=== PATIENT | male | born 1945 | race Caucasian/White ===

== ENCOUNTER 2019-01-15 05:25 | Inpatient (IN) | payer OTHER, MEDICARE, SELFPAY ==
[2019-01-01 10:59] VITALS: BMI 21.4
[2019-01-15] VITALS (15 sets, daily range): BP systolic 114–170; BP diastolic 67–103; PULSE 56–700; RESP 9–18; TEMP 35.6–36.8; O2SAT 97–100; BMI 20.7
[2019-01-15] MEDS: LACTATED RINGERS 1,000 ML 42 ML IV (07:27)
[2019-01-15] MEDS: CEFAZOLIN 2 GM/100 ML FROZ.PIGGY IV (08:16)
--- NOTE | 2019-01-15 08:36 | SUR.OPER ---
Prone on spine table, head in foam head support, padded chest and pelvic supports, gel pad at knees, lower legs supported by pillows; nipples, genitalia and toes free of pressure, arms secured on foam padded arm boards at <90 degrees abduction. Tape over blanket at thigh secured to table.
--- NOTE | 2019-01-15 08:41 | SUR.OPER ---
BRUISE COVERING LEFT SIDE OF FOREHEAD. PATIENT STATES HE HIT IT ON A CAR DOOR LAST WEEK. RUIZ PALCEMENT ATTEMPTED. UNABLE TO ADVANCE TO VERIFY URINE RETURN.DR. SHETTY INFORMED AND RUIZ PLACEMENT ORDER DC'D
[2019-01-15] MEDS: BUPIVACAINE 0.25% W/ EPI 30 ML VIAL INJ (08:53)
[2019-01-15] MEDS: BUPIVACAINE LIPOSOME 266 MG/20 ML VIAL INJ (08:56)
--- NOTE | 2019-01-15 09:27 | PM.OP.1 ---
Operative Date/Time/Diagnoses Date of procedure: 01/15/19 Time of procedure: 08:04 Pre-op diagnosis: 1. Hx of lumbar fusion with possible hardware loosening 2. Lumbar spinal stenosis at multiple levels Post-op diagnosis: same Procedure & Clinicians Procedure: 1. Posterior segmental instrumentation removal L3-5 2. L5-S1 posterolateral fusion 3. L3-4, L4-5 hemilaminectomy with debridement of epidural scar tissue Same procedure as scheduled: Yes Indications: Patient has been having chronic back pain and worsening lumbar radiculopathy. Patient had multiple lumbar surgeries in the past with worsening back pain and leg pain. Patient has left leg atrophy and significant radiculopathy after his previous surgery. Patient failed multiple conservative management with worsening pain weakness and numbness in her lower extremity. Patient has been having difficulty performing activity of daily living. After discussing risks benefits of treatment options, patient elected proceed with surgery. Surgeon: Gatito Padilla Museum Curator: Lolis Goldberg Click Yes if Unassisted: No Anesthesia Type: General Operative Notes Closure Type: primary Specimen(s): none sent Estimated Blood Loss (mL): 20 Blood products transfused: none Procedure in detail: Patient was seen in the preoperative area. Risks and benefits of the surgery was discussed with the patient. Informed consent was obtained from the patient and placed in the chart. Surgical site was marked. Patient was taken to the operative room. General anesthesia was administered. Prophylactic antibiotic was given to the patient less than 30 min before the incision was made. Patient was placed into a prone position on the Grupo table. Patient's back was then prepped and draped in the sterile fashion. Time-out was performed at this time. Using patient's previous scar incision was made over the L2-S1 interval on the left side. Fascia was incised in line with skin incision. Patient's previously placed hardware over the L3-L5 level was identified by dissecting down to the level the hardware using a Bovie and a Cisneros. The locking caps which was removed using [employer] screwdriver. The locking marlys was then removed from the tulips of the pedicle screws using a Kirk. Metal cutting bur was used to cut the marlys cephalad to the L3 pedicle screw on the left side. Once the marlys was cut and was removed from the tulips of the 2 pedicle screws from L3 and L5. The pedicle screws were then removed using the screwdriver. The screws were found to have good purchase. After the marlys and pedicle screws removed I was identified patient has significant amount of epidural scarring, this was carefully debrided using Kerrison rongeur and pituitary and curettes at L3-4 L4-5 interval. There is also evidence of previous dural injury which we protected using DuraGen over the area of potential previous defect. There was no CSF leakage during the process of reinforcing previous dural injury. The thecal sac was both directly and indirectly decompressed with removal of the hardware and also the hemilaminectomy at L3-4 L4-5 level as well as the posterolateral gutter at both levels on the left side. There was significant amount of posterolateral fusion mass from L2-L5. There was no visible fusion mass L5-S1. The posterolateral gutter at L5-S1 was decorticated using osteotome to expose bleeding bone in order to accomplish posterolateral fusion. This was done by placing DBM into the posterolateral gutter at L5-S1 level after decortication was completed. The wound was irrigated copiously with sterile normal saline. After confirming with AP and lateral C-arm imaging final hardware status, the wound was then irrigated with sterile normal saline and packed with Ray-Elie gauze for 3 min to accomplish hemostasis. After the gauze was removed the deep fascia was closed with #1 Vicryl suture. The subcutaneous layer was closed with 2-0 Vicryl. The skin was closed with skin cory. Patient tolerated the procedure well. There were no complications. Complications: none Post-operative Condition: stable Disposition: PACU Plan for aftercare: Admit to inpatient hospital
[2019-01-15] MEDS: fentaNYL 100 MCG/2 ML INJ 50 MCG IV (09:58)
[2019-01-15] MEDS: HYDROMORPHONE 2 MG INJ 0.5 MG IV (09:59)
[2019-01-15] MEDS: METOCLOPRAMIDE 10 MG/2 ML INJ IV (10:11)
[2019-01-15] MEDS: LORazepam 2 MG/ML INJ 0.25 MG IV (10:13)
--- NOTE | 2019-01-15 10:46 | SUR.PHASEI ---
Patient arrived from OR via stretcher. Medicated for c/o 8/10 pain and c/o nausea. Patient current states pain is 3/10. Placed patient on 3L 02 via MN. Kira GONZALEZ. VALENTÍN's x 4. Pulse regular, SR.
[2019-01-15] MEDS: SODIUM CHLORIDE 0.9% 1,000 ML 100 ML IV ×2 (13:00→22:20)
[2019-01-15] MEDS: ACETAMINOPHEN 325 MG TABLET 650 MG PO ×2 (14:04→19:32)
--- NOTE | 2019-01-15 15:02 | PC.NURSE ---
Pt was brought to the floor from PACU at approx. 1115. He was sleepy but A & Ox3. He reports minimal pain of 3-4/10 which is tolerable for him. Dressing to back is CDI. CMS+ PPP+ Pt has been up with nursing and ambulated to the bathroom with FWW and voided urine independently. He is 1 person SBA.
--- NOTE | 2019-01-15 15:17 | PT.IIE ---
Current Diagnoses Spinal stenosis, lumbar region without neurogenic claudication (01/15/19) Muscle wasting and atrophy, not elsewhere classified, unspecified thigh (01/15/19) Postlaminectomy syndrome, not elsewhere classified (01/15/19) Surgery Performed Operation Date: 01/15/19 07:45 Actual Procedures p REMOVAL POSTERIOR INSTRUMENTATION L3 AND L5, POSTERIOR LATERAL FUSION WITH BONE GRAFT(Not Applicable) - Gatito Padilla MD Surgical History (Last Updated 01/01/19 @ 11:23 by Trini Hernández RN) H/O transurethral resection of prostate (Acute) History of carpal tunnel release of both wrists (Acute) History of surgery (Acute ~2013) Hx of bilateral cataract extraction (Acute) Hx of laminectomy (Acute) Hx of right knee surgery (Acute) Hx of tonsillectomy (Acute) S/P cervical spinal fusion (Acute 03/07/17) S/P lumbar fusion (Acute) Medical History (Last Updated 01/01/19 @ 11:21 by Trini Hernández RN) Melanoma (Acute) Osteoarthritis (Acute) Pneumonia (Acute ~1985) Sciatica of left side (Acute) Physical Therapy Inpatient Evaluation/Re-Eval M1 PT/OT-IP Prior Functional Status Start: 01/15/19 14:41 Freq: NEEDED Status: Active Protocol: Document 01/15/19 15:08 [facility] (Rec: 01/15/19 15:17 [facility] [id number]) Medical Review Prior Functional Status Medical History Reviewed Yes Diet/Fluid Consistency Regular Communication WNL Mobility and Gait Indep without AD Activities of Daily Living and IADL's indep with ADLs including cooking & cleaning Social History Household Members none Living Arrangements House Number of Floors (Floors) 3 or More Floors Number of Stairs To Enter/Railing? 6-7 stairs with rail to enter Home Environment Standard Height Toilet,Tub/ Shower Home Equipment Front Wheel Walker,Straight Cane Employment Status [employer] Employed Additional Social History Comment Pt works at [employer]; Pt reprots he has a friend that he can call as needed. 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 (Rec: 01/15/19 15:17 [facility] [id number]) Physical Therapy Current Condition Current Condition Evaluation Date 01/15/19 Treatment Diagnosis hardware removal & L5-S1 fusion Onset Date 01/15/19 Precautions Lumbar Precautions Log Roll,No Twisting,Limit Bending,Lifting Restriction of 10 lbs,Gait Belt above Incisional Area Weight Bearing Status Weight Bearing Status Weight Bear as Tolerated M3 PT-IP Subjective Start: 01/15/19 14:41 Freq: NEEDED Status: Active Protocol: Document 01/15/19 15:08 [facility] (Rec: 01/15/19 15:17 [facility] [id number]) Subjective Physical Therapy Visit Type Type Initial Evaluation Visit Start Time 14:40 Visit Stop Time 15:08 Total Visit Minutes 28 Number of GOLF COURSE EQUIPMENT OPERATOR Visits 0 Physical Therapy Visit Comments Patient Goals To go home tomorrow Therapy Pain Assessment Pain When Pain Assessed At Rest Pain Present Pain Present Pain Reported Location mid-lower back Intensity 6 Scale Used Numeric (1 - 10) M4 PT-IP Mobility and Gait Start: 01/15/19 14:41 Freq: NEEDED Status: Active Protocol: Document 01/15/19 15:08 [facility] (Rec: 01/15/19 15:17 [facility] [id number]) PT-Transfer Assessment Sit to and From Stand Sit to and from Stand Standby Assistance,Use of Upper Extremities Equipment Transfer Assistive Device Gait Belt,Front Wheeled Walker Orthotic/Prosthetic Devices or Brace: No Comments Mobility Comments Pt was sitting in chair at start of treatment and was able to stand from chair to walk then returned to chair SBA. Gait Assessment Gait Gait Assistance Required: Contact Guard Assist Distance (Feet) 200 Assistive Devices Assistive Device Gait Belt,Front Wheeled Walker Gait Deviations General Gait Pattern Flexed Trunk Factors Limiting Gait Function Factors Limiting Gait Function Decreased Strength,Pain,Poor Balance PT-Balance Assessment Sitting Balance and Reactions Static Sitting Balance Ability Normal Dynamic Sitting Balance Ability Normal Standing Balance and Reactions Static Standing Balance Ability Good Dynamic Standing Balance Ability Fair Device Used FWW M5 PT-IP Objective Assessments Start: 01/15/19 14:41 Freq: NEEDED Status: Active Protocol: Document 01/15/19 15:08 [facility] (Rec: 01/15/19 15:17 [facility] [id number]) Orientation Orientation/Cognition Level of Alertness Alert Strength Lower Extremity Strength Assessment Left Impaired M6 PT-IP Treatment Start: 01/15/19 14:41 Freq: NEEDED Status: Active Protocol: Document 01/15/19 15:08 [facility] (Rec: 01/15/19 15:17 [facility] [id number]) Physical Therapy Treatment Education Education Provided Precautions,Safety M7 PT-IP Assessment and Plan Start: 01/15/19 14:41 Freq: NEEDED Status: Active Protocol: Document 01/15/19 15:08 [facility] (Rec: 01/15/19 15:17 [facility] [id number]) PT Summary Assessment and Plan Potential Rehabilitation Potential Excellent Status of Condition at Evaluation Evolving Summary Impairments Pain,Strength,Balance,Bed Mobility,Transfers,Gait, Activity Tolerance Assessment Summary Pt had lumbar surgery today with fusion and hardware removal and is doing well with mobility and is very motivated to return home. He would benefit from cont training as he will be home alone. Goals Bed Mobility Goal Independent Transfer Goal Independent Gait Goal Independent Gait Distance 250ft Other Goals up/down 6 steps with rail indep Days to Meet Goals 4 Frequency of Treatment Frequency Of Treatment Twice a Day Treatment Plan Physical Therapy Treatment Plan Bed Mobility Training,Transfer Training,Gait Training, Therapeutic Exercise,Balance Retraining,Post Op Education, Discharge Planning, Neuromuscular Re-ed Other Recommendations and Next Treatment gait & stairs Focus Recommendations To Nursing Amount of Assist Needed Standby Assistance Discharge Recommendations PT Discharge Recommendations Home
[2019-01-15] MEDS: CEFAZOLIN 1 GM/50 ML FROZ.PIGGY IV (16:11)
[2019-01-15] MEDS: SENNOSIDES 8.6 MG TABLET 17.2 MG PO (19:32)
[2019-01-15] MEDS: DOCUSATE 100 MG CAPSULE PO (19:32)
--- NOTE | 2019-01-15 22:14 | PC.NURSE ---
Shift summary- Pt up to chair for most of shift. A/O x4, 98%RA, LS clear. Low back bulky island drsg CDI. CMS PP+, reports pain /. but declines all pain medications except tylenol 650mg Q-6hr. Educated on vistaril, declined, also has valuim 5mg available if chooses to take. SBZ to ambulate hallways x4 and BRP. LRA NS @ 125 infussing. Bed alarm on and call light in reach.
[2019-01-16] VITALS: BP 110/53; PULSE 58; RESP 16; TEMP 36.3; O2SAT 96
[2019-01-16] MEDS: CEFAZOLIN 1 GM/50 ML FROZ.PIGGY IV (01:02)
[2019-01-16] MEDS: ACETAMINOPHEN 325 MG TABLET 650 MG PO ×2 (01:11→08:26)
[2019-01-16 05:00] VITALS: BP 116/58; PULSE 55; RESP 16; TEMP 36.2; O2SAT 97
[2019-01-16 07:40] VITALS: BP 145/87; PULSE 60; RESP 16; TEMP 36.5; O2SAT 98
--- NOTE | 2019-01-16 08:13 | P.DS_ITS ---
History of Present Illness History of Present Illness Date Patient Seen: 01/16/19 Time Patient Seen: 08:13 Chief complaint: [id number] Narrative: POD 1 s/p hardware removal, laminectomy and fusion with Dr. Padilla. No acute events overnight. Patient is taking tylenol for pain, which is well managed. Patient is ambulating well with PT. Voiding without assistance or difficulty. Patient educated on oxycodone and vistaril but refuses. Patient canelo es home alone and will need physical therapy clearance before discharge home. Patient admits to numbness in LE in thigh and medial calf. Patient has no complaints. Patient denies fever, chills, nausea, vomiting, chest pain, shortness of breath. Discharge Providers Provider Date of admission: 01/15/19 05:25 Discharge Date: 01/16/19 Consults: 01/15/19 11:56 Consult to Occupational Therapy Evaluate & Treat Comment: Physician Instructions: Evaluate and treat Consult to Physical Therapy Evaluate & Treat Comment: Physician Instructions: Evaluate and Treat Discharge provider: Ginette Avila PA-C Summary Hospital Course Discharge Diagnosis: s/p Posterior segmental instrumentation removal L3-5, L5-S1 posterolateral fusion, L3-4, L4-5 hemilaminectomy with debridement of epidural scar tissue spinal stenosis muscle atrophy Hospital Course: Patient admitted to hospital s/p hardware removal, laminectomy and fusion with Dr. Padilla. Hospital course was unremarkable. Post op day 1 patient was ready for discharge home. Patient was ambulating with PT prior to discharge. Patient was eating and voiding without difficulty or assistance. Pain was well managed with tylenol. Patient refuses any prescriptions for oxycodone or vistaril. Patient has valium at home for muscle spasms. Status at Discharge Cognitive/behavioral status at discharge: oriented Functional status at discharge: uses cane/walker Overall status at discharge: patient is progressing back to baseline Time Spent with Patient Time spent: Less than 30 minutes Exam Vital Signs (past 8 hours): - 01/16/19 05:00 Temperature 97.2 F L Pulse Rate 55 L Respiratory Rate 16 Blood Pressure 116/58 L Pulse Oximetry 97 Oxygen Delivery Method Room Air Oxygen Flow Rate 0 Narrative Exam Narrative: 73 year old pleasant male is sitting upright in bed, in no apparent distress. A&Ox3. Dressing is CDI. Sensory function is grossly intact to light touch in LE, except for entire L thigh and medial L calf. Dorsalis pedis 2+ bl. Capillary refill <2seconds LE bl. Patient able to actively plantar flex/dorsiflex. Discharge Plan Discharge Plan Patient Disposition: Home Discharge comment: discharge home pending PT eval Discharge Med Rec/Prescriptions Prescriptions: New acetaminophen [Tylenol 8 Hour] 650 mg tablet extended release 650 mg PO Q8H PRN (Reason: pain) Qty: 30 RF: 0 Continued diazepam [Valium] 5 mg Tablet 5 mg PO BEDTIME PRN (Reason: muscle cramps) RF: 0 Follow up/Referrals: Gatito Padilla MD [Physician] - Provider Discharge Instructions Diet: Regular Activity: ambulate as tolerated. no excessive bending, twisting, lifting. Cold/Heat Therapy: continue cold/heat therapy as needed Skin/Wound/Dressing Care Report to your healthcare provider any signs of infection, such as:: chills, fever, increased pain, unusual drainage and unusual redness Dressing: keep dressing dry. if saturated, contact the office for a dressing change. Visit Report/Discharge Packet Instructions: DI for Laminectomy Stand Alone Forms: Surgery Discharge Quality VTE Deep Vein Thrombosis/Pulmonary Embolism Present on Admission: No
[2019-01-16] MEDS: DOCUSATE 100 MG CAPSULE PO (08:26)
--- NOTE | 2019-01-16 09:08 | PT.IPTN ---
Current Diagnoses Spinal stenosis, lumbar region without neurogenic claudication (01/15/19) Muscle wasting and atrophy, not elsewhere classified, unspecified thigh (01/15/19) Postlaminectomy syndrome, not elsewhere classified (01/15/19) Surgery Performed Operation Date: 01/15/19 07:45 Actual Procedures p REMOVAL POSTERIOR INSTRUMENTATION L3 AND L5, POSTERIOR LATERAL FUSION WITH BONE GRAFT(Not Applicable) - Gatito Padilla MD Physical Therapy Treatment Note M2 PT-IP Current Condition Start: 01/15/19 14:41 Freq: NEEDED Status: Active Protocol: Document 01/15/19 15:08 [facility] (Rec: 01/15/19 15:17 [facility] [id number]) Physical Therapy Current Condition Current Condition Evaluation Date 01/15/19 Treatment Diagnosis hardware removal & L5-S1 fusion Onset Date 01/15/19 Precautions Lumbar Precautions Log Roll,No Twisting,Limit Bending,Lifting Restriction of 10 lbs,Gait Belt above Incisional Area Weight Bearing Status Weight Bearing Status Weight Bear as Tolerated M3 PT-IP Subjective Start: 01/15/19 14:41 Freq: NEEDED Status: Active Protocol: Document 01/16/19 09:08 [facility] (Rec: 01/16/19 09:40 [facility] [id number]) Subjective Physical Therapy Visit Type Type Treatment Note Visit Start Time 08:45 Visit Stop Time 09:08 Total Visit Minutes 23 Number of TELEHEALTH CASE MANAGER Visits 1 Physical Therapy Visit Comments Patient Comments Pt willing to work with PT. Patient Goals To go home today. Therapy Pain Assessment Pain When Pain Assessed At Rest Pain Present Pain Present Pain Reported Location mid-lower back Intensity 7 Scale Used Numeric (1 - 10) Pain Management Techniques Re-positioning,Timing of Activity with Medications M4 PT-IP Mobility and Gait Start: 01/15/19 14:41 Freq: NEEDED Status: Active Protocol: Document 01/16/19 09:08 [facility] (Rec: 01/16/19 09:40 [facility] [id number]) PT-Bed Mobility Assessment Rolling Type of Rolling Roll to Left Level of Assist Independent Supine to Sit Supine to Sit Independent Sit to Supine Sit to Supine Independent Scooting Scooting to Edge of Bed Independent Scooting Up and Down in Bed Independent PT-Transfer Assessment Sit to and From Stand Sit to and from Stand Standby Assistance,Use of Upper Extremities Equipment Transfer Assistive Device None,Gait Belt,Front Wheeled Walker Orthotic/Prosthetic Devices or Brace: No Transfers Transfer Destination Bed Transfer Technique Stand Step Pivot Transfer Ability Level of Assist Standby Assistance,Use of Upper Extremities Comments Mobility Comments Pt was supine in bed HOB elevated, was able complete supine<> sitting I, sit to stand SBA, no LOB or deviations no AD required. Pt was able to walk room distance with no LOB or deviations. Gait Assessment Gait Gait Assistance Required: Contact Guard Assist Distance (Feet) 579 Able to Maintain Weight Bearing Status Yes During Gait Assistive Devices Assistive Device None,Gait Belt Gait Deviations General Gait Pattern Flexed Trunk Factors Limiting Gait Function Factors Limiting Gait Function Decreased Strength,Pain,Poor Balance Comments Gait Comments Pt was able to ambulate full inpatient floor with no AD requiring CGA, occasional cuing for slower pacing for energy conservation, steps passing each other, LLE positioning into ER positioning secondary to lack of strength in L quad has had for years. No LOB or deviations demonstrated. Stair Climbing Assessment Evaluation Level of Assist On Stairs Standby Assistance Devices Stair Climbing Assistive Devices Right Railing Technique/Endurance Stair Climbing Direction Ascend and Descend Stair Climbing Technique Step to Step Number of Steps Climbed 3 Stair Climbing Set # Repetitions (reps) 2 Comments Stair Climbing Comments Pt was able to ascend/descend 6 stairs using RHR step to patterning RLE leading up/LLE descending, patterning has done for years secondary to lack of quad activation, no deviations or LOB noted. PT-Balance Assessment Sitting Balance and Reactions Static Sitting Balance Ability Normal Dynamic Sitting Balance Ability Normal Standing Balance and Reactions Static Standing Balance Ability Good Dynamic Standing Balance Ability Fair Device Used none M5 PT-IP Objective Assessments Start: 01/15/19 14:41 Freq: NEEDED Status: Active Protocol: Document 01/15/19 15:08 [facility] (Rec: 01/15/19 15:17 [facility] [id number]) Orientation Orientation/Cognition Level of Alertness Alert Strength Lower Extremity Strength Assessment Left Impaired M6 PT-IP Treatment Start: 01/15/19 14:41 Freq: NEEDED Status: Active Protocol: Document 01/16/19 09:08 [facility] (Rec: 01/16/19 09:40 [facility] [id number]) Physical Therapy Treatment Exercises Exercises Ankle Pumps,Gluteal Sets,Quad Sets,Heel Slides,Straight Leg Raises,Supine Hip Abduction, Seated Knee Flexion/Extension Education Education Provided Precautions,Safety M7 PT-IP Assessment and Plan Start: 01/15/19 14:41 Freq: NEEDED Status: Active Protocol: Document 01/16/19 09:08 [facility] (Rec: 01/16/19 09:40 [facility] [id number]) PT Summary Assessment and Plan Potential Rehabilitation Potential Excellent Status of Condition at Evaluation Evolving Summary Impairments Pain,Strength,Balance,Gait, Activity Tolerance Assessment Summary Pt is doing well with mobility and is very motivated to return home. Pt was able to complete gait with no AD full inpatient floor, CGA but no deviations or LOB, cued for slower pacing for energy conservation. Pt was able to complete stair training 6 stairs R HR SBA step to gait with no deviations or LOB and good pacing for safety.. Goals Bed Mobility Goal Independent Transfer Goal Independent Gait Goal Independent Gait Distance 250ft Other Goals up/down 6 steps with rail indep Days to Meet Goals 4 Frequency of Treatment Frequency Of Treatment Twice a Day Treatment Plan Physical Therapy Treatment Plan Bed Mobility Training,Transfer Training,Gait Training, Therapeutic Exercise,Balance Retraining,Post Op Education, Discharge Planning, Neuromuscular Re-ed Other Recommendations and Next Treatment Pt has met transfer goals and Focus progressing in gait with no AD . Continue to recommed SBA during gait for safety with balance. Recommendations To Nursing Amount of Assist Needed Standby Assistance Discharge Recommendations PT Discharge Recommendations Home
--- NOTE | 2019-01-16 09:08 | PT.IPTN ---
Current Diagnoses Spinal stenosis, lumbar region without neurogenic claudication (01/15/19) Muscle wasting and atrophy, not elsewhere classified, unspecified thigh (01/15/19) Postlaminectomy syndrome, not elsewhere classified (01/15/19) Surgery Performed Operation Date: 01/15/19 07:45 Actual Procedures p REMOVAL POSTERIOR INSTRUMENTATION L3 AND L5, POSTERIOR LATERAL FUSION WITH BONE GRAFT(Not Applicable) - Gatito Padilla MD Physical Therapy Treatment Note M2 PT-IP Current Condition Start: 01/15/19 14:41 Freq: NEEDED Status: Active Protocol: Document 01/15/19 15:08 [facility] (Rec: 01/15/19 15:17 [facility] [id number]) Physical Therapy Current Condition Current Condition Evaluation Date 01/15/19 Treatment Diagnosis hardware removal & L5-S1 fusion Onset Date 01/15/19 Precautions Lumbar Precautions Log Roll,No Twisting,Limit Bending,Lifting Restriction of 10 lbs,Gait Belt above Incisional Area Weight Bearing Status Weight Bearing Status Weight Bear as Tolerated M3 PT-IP Subjective Start: 01/15/19 14:41 Freq: NEEDED Status: Active Protocol: Document 01/16/19 09:08 [facility] (Rec: 01/16/19 09:40 SP [id number]) Subjective Physical Therapy Visit Type Type Treatment Note Visit Start Time 08:45 Visit Stop Time 09:08 Total Visit Minutes 23 Number of MENTAL HEALTH DIRECTOR Visits 1 Physical Therapy Visit Comments Patient Comments Pt willing to work with PT. Patient Goals To go home today. Therapy Pain Assessment Pain When Pain Assessed At Rest Pain Present Pain Present Pain Reported Location mid-lower back Intensity 7 Scale Used Numeric (1 - 10) Pain Management Techniques Re-positioning,Timing of Activity with Medications M4 PT-IP Mobility and Gait Start: 01/15/19 14:41 Freq: NEEDED Status: Active Protocol: Document 01/16/19 09:08 [facility] (Rec: 01/16/19 09:40 SP [id number]) PT-Bed Mobility Assessment Rolling Type of Rolling Roll to Left Level of Assist Independent Supine to Sit Supine to Sit Independent Sit to Supine Sit to Supine Independent Scooting Scooting to Edge of Bed Independent Scooting Up and Down in Bed Independent PT-Transfer Assessment Sit to and From Stand Sit to and from Stand Standby Assistance,Use of Upper Extremities Equipment Transfer Assistive Device None,Gait Belt,Front Wheeled Walker Orthotic/Prosthetic Devices or Brace: No Transfers Transfer Destination Bed Transfer Technique Stand Step Pivot Transfer Ability Level of Assist Standby Assistance,Use of Upper Extremities Comments Mobility Comments Pt was supine in bed HOB elevated, was able complete supine<> sitting I, sit to stand SBA, no LOB or deviations no AD required. Pt was able to walk room distance with no LOB or deviations. Gait Assessment Gait Gait Assistance Required: Contact Guard Assist Distance (Feet) 579 Able to Maintain Weight Bearing Status Yes During Gait Assistive Devices Assistive Device None,Gait Belt Gait Deviations General Gait Pattern Flexed Trunk Factors Limiting Gait Function Factors Limiting Gait Function Decreased Strength,Pain,Poor Balance Comments Gait Comments Pt was able to ambulate full inpatient floor with no AD requiring CGA, occasional cuing for slower pacing for energy conservation, steps passing each other, LLE positioning into ER positioning secondary to lack of strength in L quad has had for years. No LOB or deviations demonstrated. Stair Climbing Assessment Evaluation Level of Assist On Stairs Standby Assistance Devices Stair Climbing Assistive Devices Right Railing Technique/Endurance Stair Climbing Direction Ascend and Descend Stair Climbing Technique Step to Step Number of Steps Climbed 3 Stair Climbing Set # Repetitions (reps) 2 Comments Stair Climbing Comments Pt was able to ascend/descend 6 stairs using RHR step to patterning RLE leading up/LLE descending, patterning has done for years secondary to lack of quad activation, no deviations or LOB noted. PT-Balance Assessment Sitting Balance and Reactions Static Sitting Balance Ability Normal Dynamic Sitting Balance Ability Normal Standing Balance and Reactions Static Standing Balance Ability Good Dynamic Standing Balance Ability Fair Device Used none M5 PT-IP Objective Assessments Start: 01/15/19 14:41 Freq: NEEDED Status: Active Protocol: Document 01/15/19 15:08 [facility] (Rec: 01/15/19 15:17 [facility] [id number]) Orientation Orientation/Cognition Level of Alertness Alert Strength Lower Extremity Strength Assessment Left Impaired M6 PT-IP Treatment Start: 01/15/19 14:41 Freq: NEEDED Status: Active Protocol: Document 01/16/19 09:08 [facility] (Rec: 01/16/19 09:40 SP [id number]) Physical Therapy Treatment Exercises Exercises Ankle Pumps,Gluteal Sets,Quad Sets,Heel Slides,Straight Leg Raises,Supine Hip Abduction, Seated Knee Flexion/Extension Education Education Provided Precautions,Safety M7 PT-IP Assessment and Plan Start: 01/15/19 14:41 Freq: NEEDED Status: Active Protocol: Document 01/16/19 09:08 SP (Rec: 01/16/19 09:40 SP [id number]) PT Summary Assessment and Plan Potential Rehabilitation Potential Excellent Status of Condition at Evaluation Evolving Summary Impairments Pain,Strength,Balance,Gait, Activity Tolerance Assessment Summary Pt is doing well with mobility and is very motivated to return home. Pt was able to complete gait with no AD full inpatient floor, CGA but no deviations or LOB, cued for slower pacing for energy conservation. Pt was able to complete stair training 6 stairs R HR SBA step to gait with no deviations or LOB and good pacing for safety.. Goals Bed Mobility Goal Independent Transfer Goal Independent Gait Goal Independent Gait Distance 250ft Other Goals up/down 6 steps with rail indep Days to Meet Goals 4 Frequency of Treatment Frequency Of Treatment Twice a Day Treatment Plan Physical Therapy Treatment Plan Bed Mobility Training,Transfer Training,Gait Training, Therapeutic Exercise,Balance Retraining,Post Op Education, Discharge Planning, Neuromuscular Re-ed Other Recommendations and Next Treatment Pt has met transfer goals and Focus progressing in gait with no AD . Continue to recommed SBA during gait for safety with balance. Pt was sitting EOB at end of PT with call light within reach. Recommendations To Nursing Amount of Assist Needed Standby Assistance Discharge Recommendations PT Discharge Recommendations Home
--- NOTE | 2019-01-16 10:24 | OT.IP.EVAL ---
Current Diagnoses Spinal stenosis, lumbar region without neurogenic claudication (01/15/19) Muscle wasting and atrophy, not elsewhere classified, unspecified thigh (01/15/19) Postlaminectomy syndrome, not elsewhere classified (01/15/19) Surgery Performed Operation Date: 01/15/19 07:45 Actual Procedures p REMOVAL POSTERIOR INSTRUMENTATION L3 AND L5, POSTERIOR LATERAL FUSION WITH BONE GRAFT(Not Applicable) - Gatito Padilla MD Past Medical History (Last Updated 01/01/19 @ 11:21 by Trini Hernández RN) Melanoma (Acute) Osteoarthritis (Acute) Pneumonia (Acute ~1985) Sciatica of left side (Acute) Surgical History (Last Updated 01/01/19 @ 11:23 by Trini Hernández RN) H/O transurethral resection of prostate (Acute) History of carpal tunnel release of both wrists (Acute) History of surgery (Acute ~2013) Hx of bilateral cataract extraction (Acute) Hx of laminectomy (Acute) Hx of right knee surgery (Acute) Hx of tonsillectomy (Acute) S/P cervical spinal fusion (Acute 03/07/17) S/P lumbar fusion (Acute) Occupational Therapy Inpatient Evaluation/Re-Eval M1 PT/OT-IP Prior Functional Status Start: 01/16/19 14:21 Freq: NEEDED Status: Active Protocol: Document 01/16/19 10:24 [facility] (Rec: 01/16/19 14:39 [facility] [id number]) Medical Review Prior Functional Status Medical History Reviewed Yes Diet/Fluid Consistency Regular Communication WNL Mobility and Gait Indep without AD Activities of Daily Living and IADL's indep with ADLs including cooking & cleaning Prior Functional Level (Other details) Pt has 4 greek shepards,2 who are services dogs and one in training. Social History Household Members none Living Arrangements House Number of Floors (Floors) 3 or More Floors Number of Stairs To Enter/Railing? 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 Lives in a farmhouse with 2.5 stories and can stay on main floor for a little bit; pt has 4 greek shepards (2 are service dogs and one is in training) M2 OT-IP Current Condition Start: 01/16/19 14:21 Freq: Status: Active Protocol: Document 01/16/19 10:24 [facility] (Rec: 01/16/19 14:39 [facility] [id number]) Occupational Therapy Current Condition Current Condition Evaluation Date 01/16/19 Treatment Diagnosis S/p L3-L5 removal of hardward and L3-5 hemilami, L5-S1 fusion Diagnosis Onset Date 01/15/19 Post Operative Precautions Lumbar Precautions Log Roll,No Twisting,Limit Bending,Lifting Restriction of 10 lbs,Gait Belt above Incisional Area Weight Bearing Status Weight Bearing Status Weight Bear as Tolerated M3 OT- IP Subjective and Pain Start: 01/16/19 14:21 Freq: Status: Active Protocol: Document 01/16/19 10:24 [facility] (Rec: 01/16/19 14:39 [facility] [id number]) OT- Subjective Occupational Therapy Visit Type Type Initial Evaluation Visit Start Time 10:24 Visit Stop Time 11:08 Total Visit Minutes 44 Occupational Therapy Visit Comments Patient Comments Pt wanting to shower. Patient/Caregiver Goals To go home today. OT Pain Assessment Pain When Pain Assessed At Rest Pain Present Pain Present Pain Reported Location mid-lower back Intensity 6 M4 OT- IP ADL's Start: 01/16/19 14:21 Freq: Status: Active Protocol: Document 01/16/19 10:24 [facility] (Rec: 01/16/19 14:39 [facility] [id number]) OT [id number] General Evaluation Self-Feeding Ability Independent OT ADL-Dressing General Eval Upper Body Dressing Ability Independent Lower Body Dressing Ability Standby Assistance Comments OT Dressing Comments VC to joon LLE first and take out last. Pt needing to use his arms to help cross LLE over during LB dressing. VC to sit for LB dressing needs. OT ADL-Toileting General Evaluation Toileting Ability Independent OT ADL-Bathing Bathing Type Bathing Type Shower General Evaluation Bathing Ability Standby Assistance Devices Bathing Equipment Shower Chair with Arms,Grab Bars Comments OT Bathing Comments Suggested pt to have shower chair at home for showering needs. Pt needing cues to incorporate back precautions as tends to bend and twist too much. M5 OT- IP IADL's Start: 01/16/19 14:21 Freq: Status: Active Protocol: Document 01/16/19 10:24 [facility] (Rec: 01/16/19 14:39 [facility] [id number]) OT-Instrumental Activities of Daily Living Home Safety Awareness Home Safety Comments Pt states has hired assist to take care of the dogs and friend to assist as needed but will not stay with him. Suggested pt not drive at this time until cleared by the physician. M6 OT- IP Functional Cognition Start: 01/16/19 14:21 Freq: Status: Active Protocol: Document 01/16/19 10:24 [facility] (Rec: 01/16/19 14:39 [facility] [id number]) Cognitive Factors Limiting Selfcare Function Cognitive Ability Level of Alertness Alert Patient Orientation Name,Age,Birthday,Month,Date, Year,Day of Week,Place, Situation Attention Span Ability Capable of Focused Attention, Capable of Sustained Attention Ability to Follow Commands Able to Follow Multi-Step Commands Memory Description No Deficits Noted Safety Awareness Decreased Ability to Apply Precautions,Underestimates Need for Assistance Cognitive Comments Cognitive Assessment Comments Pt needing vc to slow down and take his time . Educated that pt will need assist for IADl needs, continued assist to care for his dogs. M7 OT- IP Mobility and Balance Start: 01/16/19 14:21 Freq: Status: Active Protocol: Document 01/16/19 10:24 [facility] (Rec: 01/16/19 14:39 [facility] [id number]) OT- Bed Mobility Assessment Rolling Type of Rolling Log Rolling Level of Assistance Independent Supine to Sit Supine to Sit Assist Independent OT-Transfer Assessment Sit to and From Stand Sit to and from Stand Independent Transfers Transfer Ability Independent,Standby Assistance Technique Transfer Destination Bed,Chair,Shower Stall,Toilet Transfer Technique Stand Step Pivot Devices Transfer Assistive Devices None Comments Mobility Comments Pt mostly independent in the room and able to get up and down from the floor however with rounded back and educated if getting , crouching to the floor to keep his back straight. OT- Gait Assessment Comments Gait Ability Comments Pt has limp in LLE due to prior weakness but able to get around in the room on his own . OT- Balance Assessment Sitting Balance and Reactions Static Sitting Balance Ability Normal Dynamic Sitting Balance Ability Normal Standing Balance and Reactions Static Standing Balance Ability Good Dynamic Standing Balance Ability Fair Comments Other Balance Tests/Deviations/Treatment Pt not wanting to use any : devices at this time and states that they just get in his way. M8 OT- IP Objective Assessments Start: 01/16/19 14:21 Freq: Status: Active Protocol: Document 01/16/19 10:24 [facility] (Rec: 01/16/19 14:39 [facility] [id number]) OT Gross Range of Motion Upper Extremity Range of Motion Assessment Within Functional Limits M9 OT- IP Assessment and Plan Start: 01/16/19 14:21 Freq: Status: Active Protocol: Document 01/16/19 10:24 [facility] (Rec: 01/16/19 14:39 [facility] [id number]) OT Summary Assessment and Plan Potential Rehabilitation Potential Good Analytic Complexity at Evaluation Low Summary OT Impairments Pain,Balance Progress Towards Goals Progressing Toward Goals Assessment Summary Pt low complexity and main barrier is decreased safety awareness, needing reminders for back precautions during dressing needs, recommended no driving at this time and will continue to need assist at home to help take care of his dogs and for IADl needs. Pt will benefit from a shower chair. Goals Patient/Caregiver Education Goal Demonstrate Post-Op Precautions Days to Meet Goals 1 Frequency of Treatment Frequency Of Treatment Once a Day Treatment Plan OT Treatment Plan ADL Training,Functional Cognition Training,Functional Mobility,Patient/Family Education,Discharge Planning Discharge Recommendations OT Discharge Recommendations Home with Assistance Home Equipment Needs Shower chair.
[2019-01-16 11:30] VITALS: BP 134/76; PULSE 60; RESP 16; TEMP 36.8; O2SAT 98
--- NOTE | 2019-01-16 12:57 | CM.IDA ---
Initial DCP Assessment Note: Pt is a 73 yo male, resident of [place]. Pt is POD#1 from spinal surgery w/Dr Padilla and now DC home. PCP: Unknown Payer: [place]/ Medicare A Met w/pt this morning, DC order in place and pt eager to return home. He has a ride coming to pick him up to take home to [place]. PT has cleared pt for this plan. P: DC home today w/close outpt f/u per order from Ortho team via pov. ANGELIQUE
--- NOTE | 2019-01-16 15:24 | PC.NURSE ---
DISCHARGE; PATIENT CONSISTANTLY RATES PAIN 7-8/10. STATES HE IS USED TO MANAGING HIGH PAIN LEVELS AND IS VERY ADAMANT THAT HE DOES NOT WANT ANYTHING STRONGER THAN TYLENOL. DRSG CHANGED TO COVERSITE FOR SHOWER W/ OT. RACHEAL INTACT, BRUISING. NO REDNESS. HIS FRIEND ARRIVED TO TAKE HIM HOME. PATIENT LEFT BY WC APPROX 1300 IN NO S/SX'S OF DISTRESS W/ ALL BELONGINGS AND PAPERWORK
== END 2019-01-16 13:00 | disposition home or self-care (01) | DRG 460 ==
PROVIDERS: Admitting Provider Orthopaedic Surgery Orthopaedic Surgery of the Spine; Visit Provider Orthopaedic Surgery Orthopaedic Surgery of the Spine
PROC: 0SG30K1 Fusion of Lumbosacral Joint with Nonautologous Tissue Substitute, Posterior Approach, Posterior Column, Open Approach (ICD-10-PCS; principal; 2019-01-15 07:45)
DX: M48.061 Spinal stenosis, lumbar region without neurogenic claudication (principal); M96.1 Postlaminectomy syndrome, not elsewhere classified; M62.559 Muscle wasting and atrophy, not elsewhere classified, unspecified thigh
CPT/HCPCS: 97116; 97162; 97165; 97530; 97535; C1776; C9290; J0330; J0690; J1100; J1170; J2060; J2405; J2704; J2765; J3010